=== PATIENT | male | born 2000 | race Caucasian/White ===

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

== ENCOUNTER 2021-05-21 18:40 | Inpatient (IN) | payer OTHER ==
[~2021-05-21] VITALS: Ht 172.7 cm; Wt 66.2 kg
[~2021-05-21 18:40] MED LIST changes: +NAPROSYN500 MG PO; +TRESIBA FL100 UNIT/1 SUBQ
[2021-05-21 18:56] VITALS: BP 138/94
[2021-05-21 19:24] LABS: URINE BLOOD 2+ (Negative); URINE CLARITY CLEAR; URINE COLOR YELLOW; URINE GLUCOSE-RANDOM 3+ (Negative); URINE LEUKOCYTES-REFLEX NEGATIVE (Negative); URINE NITRITE-REFLEX NEGATIVE (Negative); URINE PROTEIN 1+ (Negative); URINE SPECIFIC GRAVITY >= 1.030 (1.005-1.030); URINE UROBILINOGEN 0.2 E.U./dl (0.2-1.0)
[2021-05-21 19:32] LABS: ACETEST (KETONE CONFIRMATORY) Moderate (Negative); ICTOTEST (BILI CONFIRMATORY) Negative (Negative); URINE BILIRUBIN 1+ (Negative); URINE KETONES 3+ (Negative)
[2021-05-21 19:34] LABS: BACTERIA-REFLEX 1-9 Few /HPF (None Seen); CASTS None Seen /LPF (None Seen); CRYSTALS None Seen /LPF (None Seen); MUCUS 0-3 Light strn/LPF (None Seen); SQUAMOUS 4-10 Moderate /LPF (0-3); URINE RBC 3-10 Few /HPF (0-2); URINE WBC-REFLEX 0-5 Rare /HPF (0-5)
[2021-05-21 21:11] LABS: HEMATOCRIT 55.3 % (42.0-52.0); HEMOGLOBIN 17.2 gm/dL (14.0-18.0); MCH 30.8 pg (26.0-34.0); MCHC 31.2 g/dL (28.0-37.0); MCV 98.8 fL (80.0-100.0); MPV 9.2 fl. (7.2-11.1); NUCLEATED RBCS 0 /100WBC; PLATELET COUNT* 358 thou/uL (150-400); RDW-CV 13.2 % (10.5-14.5); WBC 27.7 thou/uL (4.0-11.0)
[2021-05-21 21:19] LABS: BE -28.4 mmol/L (-2 to +3); PCO2 VENOUS 17.2 mmHg (41.0-51.0); PO2 VENOUS 77.3 mmHg (35.0-45.0)
[2021-05-21 21:25] LABS: BUN 23 mg/dL (7-18); CALCIUM 8.6 mg/dL (8.5-10.1); CHLORIDE 90 mmol/L (98-107); CREATININE 2.4 mg/dL (0.6-1.3); SODIUM 130 mmol/L (136-145)
[2021-05-21 21:27] LABS: ALBUMIN 3.8 g/dL (3.4-5.0); ALKALINE PHOSPHATASE 215 U/L (46-116); SGOT 114 U/L (15-37); SGPT 210 U/L (30-65); TOTAL BILIRUBIN 0.7 mg/dL (<0.1-1.0); TOTAL PROTEIN 8.3 g/dL (6.4-8.2)
[2021-05-21 21:30] LABS: ANION GAP 35 mmol/L (7-16)
[2021-05-21 21:39] LABS: CO2 < 5 mmol/L (21-32)
[2021-05-21 21:40] LABS: GLUCOSE 893 mg/dL (70-99)
[2021-05-21 22:03] LABS: ABSOLUTE MONOCYTES 2.5 thou/uL (0.0-1.2); ABSOLUTE NEUTROPHILS 22.2 thou/uL (1.6-8.1); PLATELET ESTIMATE ADEQUATE
[2021-05-22] VITALS (16 sets, daily range): BP systolic 110–142; BP diastolic 68–86
[2021-05-22 00:51] LABS: MAGNESIUM 2.9 mg/dL (1.8-2.4); PHOSPHORUS* 8.6 mg/dL (2.5-4.9)
--- NOTE | 2021-05-22 01:21 | NUR ---
PT PULLED CENTRAL LINE TRYING TO GET OUT OF BED TO PEE. 2 NEW IV PLACED. IN PATIENT. PT IN BILAT SOFT WRIST RESTRAINTS.
[2021-05-22 03:13] LABS: BE -22.7 mmol/L (-2 to +3); PCO2 VENOUS 26.4 mmHg (41.0-51.0); PO2 VENOUS 49.4 mmHg (35.0-45.0)
[2021-05-22 03:23] LABS: CALCIUM 8.2 mg/dL (8.5-10.1); CREATININE 1.9 mg/dL (0.6-1.3)
[2021-05-22 03:26] LABS: ALBUMIN 3.5 g/dL (3.4-5.0); MAGNESIUM 2.4 mg/dL (1.8-2.4); PHOSPHORUS* 3.2 mg/dL (2.5-4.9)
[2021-05-22 03:28] LABS: POTASSIUM 4.9 mmol/L (3.5-5.1)
[2021-05-22 07:18] LABS: ALBUMIN 2.9 g/dL (3.4-5.0); CALCIUM 8.1 mg/dL (8.5-10.1); CREATININE 1.6 mg/dL (0.6-1.3); MAGNESIUM 2.2 mg/dL (1.8-2.4); PHOSPHORUS* 1.7 mg/dL (2.5-4.9); POTASSIUM 4.2 mmol/L (3.5-5.1)
--- NOTE | 2021-05-22 08:17 | NUR ---
PT CHEST TUBE WAS NOT BUBBLING, CHEST TUBE TUBE REPOSITIONED AND NOW BUBBLING NEW ORDER FOR CHEST X RAY RECIEVED
--- NOTE | 2021-05-22 09:35 | NUR ---
CHEST XRAY RESULTS REVIEWED BY DR. ROSE AND DR. MARKHAM, ORDERS RECIEVED
--- NOTE | 2021-05-22 10:15 | NUR ---
Infection Control: Per [facility] Dept. patient has a positive Covid PCR test on 05/17/21 from [facility].
--- NOTE | 2021-05-22 12:22 | EKG ---
[place] [address] ELECTROCARDIOGRAM REPORT Name: PEGGY COOK Room: [address] ADM IN M.R.#: [id number] Admission: 05/21/21 Attend Phys: Pelon Garcia Discharge: Date of : 89 Date of Service: 05/21/211920 Report #: [id number] THIS REPORT FOR: //name// [facility] ED Test Date: 2021-05-21 Test Time: 19:21:50 Pat Name: PEGGY PANIAGUA Department: Room: [facility] Gender: M Employment Service Specialist: MARISEL : 2000 Requested By: Ryley Simeon Order Number: [id number] MD: Milton Pabon Measurements Intervals [place] Rate: 137 P: 81 SD: 129 QRS: 88 QRSD: 101 T: 41 QT: 293 QTc: 443 Interpretive Statements Sinus tachycardia ST elev, probable normal early repol pattern Baseline wander in lead(s) V2 No previous ECG available for comparison Electronically Signed On 05-22-2021 12:22:22 FORMING OPERATOR by Milton Pabon [email or web address] <ELECTRONICALLY SIGNED> By: Milton Pabon MD, FACC 05/22/21 1222 20 20 Milton Pabon MD, FAC /EPI
[2021-05-22 14:21] LABS: BE -6.9 mmol/L (-2 to +3); PCO2 29.9 mmHg (35.0-45.0); PO2 89.7 mmHg (75.0-100.0); pH 7.371 (7.340-7.450)
[2021-05-22 15:33] LABS: CALCIUM 7.9 mg/dL (8.5-10.1); CREATININE 1.4 mg/dL (0.6-1.3); MAGNESIUM 2.1 mg/dL (1.8-2.4); PHOSPHORUS* 1.7 mg/dL (2.5-4.9); POTASSIUM 3.5 mmol/L (3.5-5.1)
[2021-05-23] VITALS (19 sets, daily range): BP systolic 102–136; BP diastolic 62–96
[2021-05-23 01:27] LABS: BE -7.2 mmol/L (-2 to +3); PCO2 23.7 mmHg (35.0-45.0); PO2 94.4 mmHg (75.0-100.0); pH 7.421 (7.340-7.450)
[2021-05-23 01:29] LABS: BASOPHILS 0.3 %; HEMATOCRIT 39.4 % (42.0-52.0); LYMPHOCYTES 8.4 %; MCH 30.5 pg (26.0-34.0); MCHC 34.4 g/dL (28.0-37.0); MONOCYTES 6.3 %; MPV 8.1 fl. (7.2-11.1); NUCLEATED RBCS 0 /100WBC; RBC 4.45 mil/uL (4.50-6.00); RDW-CV 12.4 % (10.5-14.5)
[2021-05-23 01:30] LABS: ABSOLUTE LYMPHOCYTES 0.6 thou/uL (0.8-5.3); ABSOLUTE MONOCYTES 0.5 thou/uL (0.0-1.2); ABSOLUTE NEUTROPHILS 6.1 thou/uL (1.6-8.1); HEMOGLOBIN 13.6 gm/dL (14.0-18.0); MCV 88.6 fL (80.0-100.0); PLATELET COUNT* 133 thou/uL (150-400); WBC 7.2 thou/uL (4.0-11.0)
[2021-05-23 01:44] LABS: ALBUMIN 2.4 g/dL (3.4-5.0); CALCIUM 7.4 mg/dL (8.5-10.1); CREATININE 1.3 mg/dL (0.6-1.3); TOTAL BILIRUBIN 0.7 mg/dL (<0.1-1.0); TOTAL PROTEIN 5.4 g/dL (6.4-8.2)
[2021-05-23 01:49] LABS: POTASSIUM 2.9 mmol/L (3.5-5.1)
[2021-05-23 02:56] LABS: ESR (SEDRATE) 17 mm/hr (0-15)
--- NOTE | 2021-05-23 04:41 | NUR ---
ASSUMED CARE OF PATIENT AT 1900. PATIENT TACHYCARDIC, TACHYPNIC AND FEBRILE. DR OLIVARES NOTIFIED, ORDERS RECIEVED FOR FLUIDS, ABX, ABG, CXR AND LABS. RESULTS REPORTED TO DR OLIVARES. POTASSIUM REPLACED PER PROTOCOL.
[2021-05-23 11:15] LABS: ALBUMIN 2.5 g/dL (3.4-5.0); CALCIUM 7.9 mg/dL (8.5-10.1); CREATININE 1.5 mg/dL (0.6-1.3); MAGNESIUM 2.1 mg/dL (1.8-2.4); POTASSIUM 3.4 mmol/L (3.5-5.1); TOTAL BILIRUBIN 0.8 mg/dL (<0.1-1.0)
--- NOTE | 2021-05-23 11:43 | NUR ---
Pt admitted on 05/21/21 for DKA and Covid and is presently in the ICU. Attempted to call spokesperson: Erum Castillo at [phone] with no answer. Cm to continue to follow for discharge planning.
[2021-05-23 12:04] LABS: BE -9.5 mmol/L (-2 to +3); PO2 82.8 mmHg (75.0-100.0); pH 7.419 (7.340-7.450)
[2021-05-23 12:08] LABS: PCO2 19.6 mmHg (35.0-45.0)
[2021-05-23 19:40] LABS: ALBUMIN 2.2 g/dL (3.4-5.0); CALCIUM 7.6 mg/dL (8.5-10.1); CREATININE 1.4 mg/dL (0.6-1.3); MAGNESIUM 1.9 mg/dL (1.8-2.4); PHOSPHORUS* 2.1 mg/dL (2.5-4.9); POTASSIUM 3.7 mmol/L (3.5-5.1)
[2021-05-23 23:40] LABS: ALBUMIN 2.3 g/dL (3.4-5.0); CALCIUM 8.1 mg/dL (8.5-10.1); CREATININE 1.6 mg/dL (0.6-1.3)
[2021-05-23 23:42] LABS: POTASSIUM 2.9 mmol/L (3.5-5.1)
[2021-05-24] VITALS (18 sets, daily range): BP systolic 101–124; BP diastolic 60–81
[2021-05-24 03:36] LABS: BE -5.6 mmol/L (-2 to +3); PCO2 23.9 mmHg (35.0-45.0); PO2 115.5 mmHg (75.0-100.0); pH 7.457 (7.340-7.450)
[2021-05-24 03:36] LABS: HEMATOCRIT 34.3 % (42.0-52.0); HEMOGLOBIN 11.7 gm/dL (14.0-18.0); MCH 30.9 pg (26.0-34.0); MCHC 34.2 g/dL (28.0-37.0); MCV 90.5 fL (80.0-100.0); MPV 7.9 fl. (7.2-11.1); RBC 3.79 mil/uL (4.50-6.00); RDW-CV 12.1 % (10.5-14.5); WBC 4.2 thou/uL (4.0-11.0)
--- NOTE | 2021-05-24 08:05 | NUR ---
PATIENT STABLE. ANION GAP CLOSED OF LAST BLOOD DRAW RESULT.
[2021-05-24 09:14] LABS: CALCIUM 7.7 mg/dL (8.5-10.1); CREATININE 1.2 mg/dL (0.6-1.3); POTASSIUM 3.3 mmol/L (3.5-5.1)
[2021-05-24 09:17] LABS: ALBUMIN 2.1 g/dL (3.4-5.0); CALCIUM 7.9 mg/dL (8.5-10.1); CREATININE 1.3 mg/dL (0.6-1.3); PHOSPHORUS* 1.7 mg/dL (2.5-4.9); POTASSIUM 3.3 mmol/L (3.5-5.1)
[2021-05-24 22:10] LABS: CALCIUM 7.9 mg/dL (8.5-10.1); CREATININE 1.2 mg/dL (0.6-1.3)
[2021-05-25] VITALS (13 sets, daily range): BP systolic 98–120; BP diastolic 62–94
[2021-05-25 04:42] LABS: % SATURATION 23 % (20-39); IRON 42 ug/dL (50-175)
[2021-05-25 11:37] LABS: CALCIUM 8.2 mg/dL (8.5-10.1); CREATININE 0.9 mg/dL (0.6-1.3)
--- NOTE | 2021-05-25 14:23 | NUR ---
Dressing dc'd and reapply new one right upper chest. Cleansed with sterile chloraprep over suture site right upper chest. vaseline dressing applied, then 4x4's, and secured with wide tape. Well sealed. Patient will be discharged soon.
--- NOTE | 2021-05-25 14:49 | NUR ---
Assumed care of patient shortly after 0700 this am. Report from weight shifter rn. Patient is here with covid and dka. Off insulin drip as of 0200. Patient on carb control diet. No breakfast eaten. Did have some lunch. Patient discharged following instructions. verbalized understanding. ambulates to ER, and accompanied by RN. Patient in stable condition. Mother here to take patient home.
== END 2021-05-25 14:50 | disposition home or self-care (01) | DRG 177 ==
LOC: M.ERS 18:40 → M.TBA-ER 23:54 → M.ICU 05-22 11:14
PROVIDERS: Family Medicine; Internal Medicine; Personal Emergency Response Attendant; Radiology Vascular & Interventional Radiology; ADMIT Internal Medicine; ATTEND Internal Medicine
PROC: 0W9900Z Drainage of Right Pleural Cavity with Drainage Device, Open Approach (ICD-10-PCS; principal; 2021-05-21)
DX: U07.1 COVID-19 (principal); G93.41 Metabolic encephalopathy; E10.10 Type 1 diabetes mellitus with ketoacidosis without coma; E87.1 Hypo-osmolality and hyponatremia; J93.83 Other pneumothorax; T82.524A Displacement of infusion catheter, initial encounter; E83.41 Hypermagnesemia; E83.39 Other disorders of phosphorus metabolism; R74.01 Elevation of levels of liver transaminase levels; E87.5 Hyperkalemia; E87.6 Hypokalemia; Z20.822 Contact with and (suspected) exposure to COVID-19; Y83.8 Other surgical procedures as the cause of abnormal reaction of the patient, or of later complication, without mention of misadventure at the time of the procedure; Y92.89 Other specified places as the place of occurrence of the external cause